=== PATIENT | male | born 1965 | race Caucasian/White ===

== ENCOUNTER 2022-11-24 14:42 | Outpatient (CLI) | payer OTHER, SELFPAY | END 2022-11-24 14:43 | disposition home or self-care (01) | PROVIDERS: PCP Family Medicine; Visit Provider Family Medicine | DX: Z00.00 Encounter for general adult medical examination without abnormal findings (principal); E11.9 Type 2 diabetes mellitus without complications; E66.01 Morbid (severe) obesity due to excess calories; I10 Essential (primary) hypertension; E78.5 Hyperlipidemia, unspecified; Z11.59 Encounter for screening for other viral diseases; Z79.899 Other long term (current) drug therapy | CPT/HCPCS: 80053; 80061; 82043; 82570; 82607; 84156; 84443; 86803 ==

== ENCOUNTER 2023-06-01 12:53 | Outpatient (CLI) | payer OTHER, SELFPAY ==
--- OUTSIDE RECORDS SUMMARY | 2023-06-01 12:55 | XMS_ITS | Clinical Summary ---
Author Name Unknown Organization [facility] Address [address] [place] [address] Care Team Providers Care Varnisher Apprentice Name Role Phone Citlaly Ley PA-C Unavailable [phone] Alee Tyson APRN TRUCK SUPERVISOR Unavaila ble Elroy Leigh Primary Care Provider [phone] Sloane Claros DO Unavailable [phone] Mary Siddiqui MD Unavailable [phone] Loly Carranza MD, [place] Unavailable [phone] Allergies Active Allergy Reactions Criticality Noted Date Comments Penicillins Rash Low 05/21/2016 Medications Medication Sig Dispensed Refills Start Date End Date Status FLUoxetine (PROZAC) 20 MG capsule Take 20 mg by mouth daily 0 Active aspirin 81 MG EC tablet Take 81 mg by mouth daily 0 Active carvedilol (COREG) 3.125 MG tabletIndications: ACS (acute coronary syndrome) (H) Take 1 tablet (3.125 mg) by mouth 2 times daily (with meals) 60 tablet 0 08/25/2018 Active lisinopril (PRINIVIL/ZESTRIL) 5 MG tabletIndications: ACS (acute coronary syndrome) (H) Take 1 tablet (5 mg) by mouth daily 30 tablet 0 08/25/2018 Active atorvastatin (LIPITOR) 80 MG tabletIndications: Hyperlipidemia LDL goal <100 Take 1 tablet (80 mg) by mouth daily 30 tablet 0 08/26/2018 Active ibuprofen (ADVIL/MOTRIN) 200 MG tablet Take 400-600 mg by mouth every 6 hours as needed for mild pain or pain 0 Active albuterol (PROAIR HFA/PROVENTIL HFA/VENTOLIN HFA) 108 (90 Base) MCG/ACT inhaler Inhale 2 puffs into the lungs every 4 hours as needed for shortness of breath / dyspnea or wheezing 0 Active Urea 40 % CREA Externally apply topically 2 times daily as needed (feet) 0 Active pravastatin (PRAVACHOL) 10 MG tablet Take 10 mg by mouth daily 0 Active polyethylene glycol (GOLYTELY) 236 g suspensionIndicati ons:Screen for colon cancer 2 days prior at 5pm, mix and drink half of a jug of Golytely. Drink an 8 oz. glass of Golytely every 15 minutes until half of the jug is gone. Place remainder of Golytely in the refrigerator. 1 day prior at 5 pm, drink the 2nd half of a jug of Golytely bowel prep. 6 hours before your check-in time, drink an 8 oz. glass of Golytely every 15 minutes until half of the 2nd jug of Golytely is gone. Discard remainder of second jug. 8000 mL 0 10/11/2022 Active bisacodyl (DULCOLAX) 5 MG EC tabletIndications: Screen for colon cancer 2 days prior to procedure, take 2 tablets at 4 pm. 1 day prior to procedure, take 2 tablets at 4 pm. For additional instructions refer to your colonoscopy prep instructions. 4 tablet 0 10/11/2022 Active omeprazole (PRILOSEC) [address] capsuleIndications :Esophageal obstruction due to food impaction Take 1 capsule (40 mg) by mouth 2 times daily 60 capsule 0 10/21/2022 Active Active Problems Problem Noted Date Diagnosed Date Morbid obesity 08/15/2022 Chest pain 08/24/2018 ACS (acute coronary syndrome) 08/23/2018 Immunizations Name Administration Dates Next Due Influenza Vaccine 18-64 (Flublok) 02/20/2019 Social History Tobacco Use Types Packs/Day Years Used Date Smoking Tobacco: Never Smokeless Tobacco: Never Tobacco Cessation:Counseling Given: Not Answered Alcohol Use Standard Drinks/Week Comments No 0 (1 standard drink = 0.6 oz pur e alcohol) PHQ-2 Answer Date Recorded PHQ-2 Score 0 08/15/2022 Adolescent Education Answer Date Record ed Getting School Help Needed Not on file 01/13 Sex and Gender Information Value Date Recorded Sex Assigned at Not on file Gender Identity Not on file Sexual Orientation Not on file Last Filed Vital Signs Vital Sign Reading Time Taken Comments Blood Pressure 120/79 09/22/2021 11:00 PM CDT Pulse 95 09/22/2021 11:00 PM CDT Temperature 36.7 ??C (98.1 ??F) 09/22/2021 11:00 PM C DT Respiratory Rate 16 09/22/2021 11:00 PM CDT Oxygen Saturation 96% 09/22/2021 11:00 PM CDT Inhaled Oxygen Concentration - - Weight 204.1 kg (450 lb) 08/15/2022 11:14 AM CDT Height 185.4 cm (6' 1) 02/19/2019 12:22 AM CDT Body Mass Index 59.37 02/19/2019 12:22 AM CDT Plan of Treatment Health Maintenance Due Date Last Done Comments ADVANCE CARE PLANNING 1967 ANNUAL REVIEW OF HM ORDERS 1967 CT COLONOGRAPHY 1967 FLEX SIG 1967 GLUCOSE 1967 HEPATITIS B IMMUNIZATION (1 of 3 - 3-dose series) 1967 YEARLY PREVENTIVE VISIT 1967 sDNA (Cologuard) 1967 COLONOSCOPY 09/05/1977 ZOSTER IMMUNIZATION (1 of 2) 09/05/2017 COLORECTAL CANCER SCREENING 09/25/2018 FIT 09/25/2018 09/25/2017 DTAP/TDAP/TD IMMUNIZATION (2 - Td or Tdap) 06/17/2019 06/17/2009 COVID-19 Vaccine ( season) 2022 05/18/2021, 09/08/2020, 08/18/2020 INFLUENZA VACCINE (#1) 2022 , 03/16/2020, 02/20/2019, Additional history exists PHQ-2 (once per calendar year) 2023 08/15/2022, 05/21/2016 LIPID 08/25/2023 08/24/2018, 07/23, 07/06/2016, Additional history exists Pneumococcal Vaccine: Pediatrics (0 to 5 Years) and At-Risk Patients (6 to 64 Years) Aged Out 08/11/2012 No longer eligible based on patient's age to complete this topic HEPATITIS C SCREENING Completed 03/20/2015 HIV SCREENING Completed 01/18/2017 HPV IMMUNIZATION Aged Out No longer e ligible based on patient's age to complete this topic IPV IMMUNIZATION Aged Out No longer e ligible based on patient's age to complete this topic MENINGITIS IMMUNIZATION Aged Out No l onger eligible based on patient's age to complete this topic RSV MONOCLONAL ANTIBODY Aged Out No l onger eligible based on patient's age to complete this topic Medical Devices Implanted Type Area Ic Designer Gate Arrays Device Identifier Shelf Expiration Date Model / Serial / Lot Knee Right: Knee Advance Directives For more information, please contact: [phone] Latest Code Status on File Code Status Date Activated Date Inactivated Comments Full Code 08/23/2018 4:30 PM 08/25/2018 4:44 PM Question Answer Comments Code status determined by: Discussion wi th patient/legal decision maker Care Teams Varnisher Apprentice Relationship Specialty Start Date End Date Elroy Leigh [address] [address] PCP - General Family Practice 08/23/18 Citlaly Ley PA-C [facility] PHYSICIAN [facility] [address] [place] [address] Referring Physician 12/16/16 Alee Tyson APRN TRUCK SUPERVISOR [address] [id number] [place] [address] Nurse Practitioner Nurse Practitioner 12/16/16 [place] [address] [place] [address] Gastroenterology 09/23/21 Mary Siddiqui MD [address] [address] Gastroenterology 09/23/21 Calixto Salcido MD [address] [place] [address] Assigned Gastroenterology Provider 08/20/22
--- OUTSIDE RECORDS SUMMARY | 2023-06-01 12:56 | XMS_ITS | Encounter Summary ---
Author Name Unknown Organization [facility] Address [address] [facility] [place] [address] Care Team Providers Care Programmer Or Analyst Name Role Phone Citlaly Ley PA-C Unavailable [phone] Alee Tyson APRN PHYSICIAN Unavaila ble Elroy Leigh Primary Care Provider [phone] Sloane Claros DO Unavailable [phone] Mary Siddiqui MD Unavailable [phone] Loly Carranza MD, [place] Unavailable [phone] Reason for Visit * Reason Onset Date Comments Appointment 09/23/2021 Encounter Details Date Type Department Care Team (Late st Contact Info) Description 09/23/2021 Telephone [facility] Gastroenterology Clinic [address] 4th [place] [address] Angela Mckenzie Appointment Social History Tobacco Use Types Packs/Day Years Used Date Smoking Tobacco: Never Smokeless Tobacco: Never Alcohol Use Standard Drinks/Week Comments No 0 (1 standard drink = 0.6 oz pur e alcohol) PHQ-2 Answer Date Recorded PHQ-2 Score 0 05/02/2018 Sex and Gender Information Value Date Recorded Sex Assigned at Not on file Gender Identity Not on file Sexual Orientation Not on file COVID-19 Exposure Response Date Recorded In the last 10 days, have yo u been in contact with someone who was confirmed or suspected to have Coronavirus/COVID-19? No / Unsure 09/22/2021 3:10 PM CDT documented as of this encounter Miscellaneous Notes * Telephone Encounter - Angela Mckenzie - 09/23/2021 11:29 AM CDT [facility] Call Center Phone Message May a detailed message be left on voicemail: yes Reason for Call: Appointment Intake Referring Provider Name: Mary Siddiqui MD Diagnosis and/or Symptoms: Esophageal obstruction due to food impaction [K22.2, T18.128A] Patient is being referred for an esophageal obstruction due to food impaction and is not experiencing weight loss. First available is 30+ days out. Please review per scheduling guidelines. Thanks! Action Taken: Message routed to: [facility] GI Travel Screening: Not Applicable documented in this encounter Plan of Treatment Not on file documented as of this encounter Visit Diagnoses Not on filedocumented in this encounter Care Teams Programmer Or Analyst Relationship Specialty Start Date End Date Elroy Leigh [address] [address] PCP - General Family Practice 08/23/18 Citlaly Ley PA-C [facility] PHYSICIAN [address] [place] [address] Referring Physician 12/16/16 Alee Tyson APRN PHYSICIAN [address] [facility] [id number] [place] [address] Nurse Practitioner Nurse Practitioner 12/16/16 [place] [address] [place] [address] Gastroenterology 09/23/21 Mary Siddiqui MD [facility] [id number] Gastroenterology 09/23/21 Calixto Salcido MD [address] [place] [address] [id number] Assigned Gastroenterology Provider 08/20/22 documented as of this encounter
--- OUTSIDE RECORDS SUMMARY | 2023-06-01 12:56 | XMS_ITS | Encounter Summary ---
Author Name Unknown Organization [facility] Address Count includes the [facility] [address] Care Team Providers Care Behavioral Sciences Department Chair Name Role Phone Citlaly Ley PA-C Unavailable [phone] Alee Tyson APRN LEAD SYSTEMS ARCHITECT Unavaila ble Elroy Leigh Primary Care Provider + [phone] Sloane Claros DO Unavailable [phone] Mary Siddiqui MD Unavailable [phone] Loly Carranza MD, [place] Unavailable [phone] Encounter Details Date Type Department Care Team (Latest Contact Info) Description 10/21/[address] [facility] Gastroenterology Clinic [address] 4th [place] [address] Alanis Barba RN Esophageal obstruction due to food impaction Social History Tobacco Use Types Packs/Day Years Used Date Smoking Tobacco: Never Smokeless Tobacco: Never Alcohol Use Standard Drinks/Week Comments No 0 (1 standard drink = 0.6 oz pur e alcohol) PHQ-2 Answer Date Recorded PHQ-2 Score 0 08/15/2022 Sex and Gender Information Value Date Recorded Sex Assigned at Not on file Gender Identity Not on file Sexual Orientation Not on file documented as of this encounter Plan of Treatment Not on file documented as of this encounter Visit Diagnoses Diagnosis Esophageal obstruction due to food impaction documented in this encounter Care Teams Behavioral Sciences Department Chair Relationship Specialty Start Date End Date Elroy Leigh [address] [address] PCP - General Family Practice 08/23/18 Citlaly Ley PA-C [facility] PHYSICIAN [facility] [address] [place] [address] Referring Physician 12/16/16 Alee Tyson APRN CNP [address] [id number] [place], [place] [address] Nurse Practitioner Nurse Practitioner 12/16/16 [place] [address] [place] [address] Gastroenterology 09/23/21 Mary Siddiqui MD [address] [address] Gastroenterology 09/23/21 Calixto Salcido MD [address] [place], [place] [address] Assigned Gastroenterology Provider 08/20/22 documented as of this encounter
--- OUTSIDE RECORDS SUMMARY | 2023-06-01 12:56 | XMS_ITS | Encounter Summary ---
Author Name Unknown Organization [facility] Address [facility] [place] [address] Care Team Providers Care Control And Recovery Combat Rescue Name Role Phone Citlaly Ley PA-C Unavailable [phone] Alee Tyson APRN FRETTED INSTRUMENT INSPECTOR Unavaila ble Elroy Leigh Primary Care Provider + [phone] Sloane Claros DO Unavailable [phone] Mary Siddiqui MD Unavailable [phone] Loly Carranza MD, [place] Unavailable [phone] Reason for Visit * Reason Onset Date Comments MTM 01/18/2019 Encounter Details Date Type Department Care Team (Late st Contact Info) Description 01/18/2019 Telephone [facility] Pharm D Project [address] [place] [address] Elroy Leigh [address] [address] [place] Social History Tobacco Use Types Packs/Day Years [...] on file documented as of this encounter Miscellaneous Notes * Telephone Encounter - Sarah Tran - 01/18/2019 1:42 PM CDT Left a message asking patient to give us a call back to reschedule missed MTM appointment. Sarah Tran, MTM coordinator procurement internship documented in this encounter Plan of Treatment Not on file documented as of this encounter Visit Diagnoses Not on filedocumented in this encounter Care Teams Control And Recovery Combat Rescue Relationship Specialty Start Date End Date Elroy Leigh [address] [address] PCP - General Family Practice 08/23/18 Citlaly Ley PA-C [facility] PHYSICIAN [address] [place] [address] Referring Physician 12/16/16 Alee Tyson APRN FRETTED INSTRUMENT INSPECTOR [address] [id number] [place], [place] [id number] Nurse Practitioner Nurse Practitioner 12/16/16 [place] [address] [place] [address] Gastroenterology 09/23/21 Mary Siddiqui MD [address] [address] Gastroenterology 09/23/21 Calixto Salcido MD [address] [place] [id number] Assigned Gastroenterology Provider 08/20/22 documented as of this encounter
--- OUTSIDE RECORDS SUMMARY | 2023-06-01 12:56 | XMS_ITS | Encounter Summary ---
Author Name Unknown Organization [facility] Address [address] [facility] [place] [address] Care Team Providers Care Housing Inspector Name Role Phone Citlaly Ley PA-C Unavailable [phone] Alee Tyson APRN BLASTING HELPER Unavaila ble Elroy Leigh Primary Care Provider + [phone] Sloane Claros DO Unavailable [phone] Mary Siddiqui MD Unavailable [phone] Loly Carranza MD, Madhav Unavailable [phone] Reason for Visit * Reason Onset Date Comments Refill Request 10/19/2022 omeprazole (PRIL OSEC) 40 MG Encounter Details Date Type Department Care Team (Late st Contact Info) Description 10/19/2022 Refill [facility] Gastroenterology Clinic [address] [place] [address] Calixto Salcido MD [address] [place] [id number] Refill Request (omeprazole (PRILOSEC) 40 MG ) Social History Tobacco Use Types Packs/Day Years [...] encounter Miscellaneous Notes * Telephone Encounter - Rajwinder Gomez RN - 10/21/2022 10:56 AM CDT omeprazole (PRILOSEC) 40 MG Last Written Prescription Date: 09/22/21 Last Fill Quantity: 90, # refills: 3 Last Office Visit : 08/15/22 Future Office visit: 02/14/23 Routing refill request to provider for review/approval because: Does GI want to continue RF med ? Patient not taking: Reported on 08/15/2022 * Telephone Encounter - Meme Mcgraw LPN - 10/19/2022 2:11 PM CDT Images from the original note were not included. documented in this encounter Plan of Treatment Not on file documented as of this encounter Visit Diagnoses Diagnosis Esophageal obstruction due to food impaction documented in this encounter Care Teams Housing Inspector Relationship Specialty Start Date End Date Elroy Leihg [address] [address] PCP - General Family Practice 08/23/18 Citlaly Ley PA-C [facility] PHYSICIAN [facility] [address] [place] [address] Referring Physician 12/16/16 Alee Tyson APRN CNP [address] [id number] [place] [address] Nurse Practitioner Nurse Practitioner 12/16/16 [place] [address] [place] [address] Gastroenterology 09/23/21 Mary Siddiqui MD [address] [address] Gastroenterology 09/23/21 Calixto Salcido MD [address] [place] [address] Assigned Gastroenterology Provider 08/20/22 documented as of this encounter
--- OUTSIDE RECORDS SUMMARY | 2023-06-01 12:56 | XMS_ITS | Encounter Summary ---
Author Name Unknown Organization [place] Address [facility] [place] [address] Care Team Providers Care Construction And Maintenance Inspector Name Role Phone Citlaly Ley PA-C Unavailable [phone] Alee Tyson APRN FREIGHT CHECKER Unavaila ble Elroy Leigh Primary Care Provider + [phone] Sloane Claros DO Unavailable [phone] Mary Siddiqui MD Unavailable [phone] Reason for Referral * Consultation (Routine: Next available opening) - Pending Review Specialty Diagnoses / Procedures Referred By Sylvia adam Referred To Contact Gastroenterology Diagnoses Gastroesophageal reflux disease with esophagitis without hemorrhage Screen for colon cancer Calixto Salcido MD [address] [place] [address] Referral ID Status Reason Start Date Expiration Date V isits Requested Visits Authorized [id number] Pending Review 08/15/2022 08/15/2023 1 1 Question Answer Service: Lower Endoscopy, Upper Endoscopy Upper Endoscopy Type: EGD Sedation Concerns: Hx of Poor Sedation Sedation Type: Deep/MAC Sedation Reason for Upper Endoscopy: dysphagia, GERD, CRC screening Lower Endoscopy Type: Colonoscopy Reason for Colonoscopy: Other Other Reason for Colonoscopy: screening Preferred Location: [facility] Scheduling Instructions: [facility] will call you to coordinate your care as prescribed by the provider. If you don? t hear from a inbound customer service representative within 2 business days, please call . Additional Information: with Dr. Salcido, not earlier than September 14 Comments Please be aware that coverage of these services is subject to the terms and limitations of your health insurance plan. Call member services at your health plan with any benefit or coverage questions. [facility] will call you to coordinate your care as prescribed by the provider. If you don? t hear from a inbound customer service representative within 2 business days, please call . Reason for Visit * Reason Comments Video Visit Esophageal Obstructi on Encounter Details Date Type Department Care Team (Latest Contact Info) Description 08/15/2022 11:20 AM CDT Virtual Visit [facility] [address] [place] [address] Calixto Salcido MD [address] [place] [id number] Gastroesophageal reflux disease with esophagitis without hemorrhage (Primary Dx); Morbid obesity (H); Screen for colon cancer Social History Tobacco Use Types Packs/Day Years [...] on file documented as of this encounter Last Filed Vital Signs Vital Sign Reading Time Taken Comments Blood Pressure - - Pulse - - Temperature - - Respiratory Rate - - Oxygen Saturation - - Inhaled Oxygen Concentration - - Weight 204.1 kg (450 lb) 08/15/2022 11:14 AM CDT Height - - Body Mass Index 59.37 02/19/2019 12:22 AM CDT documented in this encounter Patient Instructions * Patient Instructions* Calixto Salcido MD - 08/15/2022 11:20 AM CDT We will schedule for upper endoscopy and colonoscopy for further evaluation and management. We havesent omeprazole 40 mg twice a day to your preferred pharmacy. You should start taking omeprazole 40mg twice a day, 30 to 40 minutes prior to your lunch and dinner. Continue to monitor his symptoms and if any changes please let us know. documented in this encounter Progress Notes * Calixto Salcido MD - 08/15/2022 11:20 AM CDT Rene Meza is a 56 year old male who is being evaluated via a billable phone visit. Virtual Visit Details Type of service: Video Visit Video Start Time: 11:22 AM Video End Time:11;32 AM Originating Location (pt. Location): Home Distant Location (provider location): Off-site Platform used for Video Visit: [facility] Gastroenterology Visit for: Rene Meza 1965 August 15, 2022 Rene Meza is a 56 year old male who is being evaluated via a billable video (or phone) visit. The patient has been notified of following: This video (or phone) visit will be conducted via a call between you and your physician/provider. We have found that certain health care needs can be provided without the need for an in-person physical exam. This service lets us provide the care you need with a video conversation. If a prescription is necessary we can send it directly to your pharmacy. If lab work is needed we can place an orderfor that and you can then stop by our lab to have the test done at a later time. If during the course of the call the physician/provider feels a video/phone visit is not appropriate, you will not be charged for this service. Patient confirmed that they are in [place] for today's visit Reason for Visit: chief complaint GERD, dysphagia Referred by: No ref. provider found / Patient Care Team: Elroy Leigh as PCP - General (Family Practice) Citlaly Ley PA-C as Referring Physician Alee Tyson APRN CNP as Nurse Practitioner (Nurse Practitioner) Sloane Claros DO as (Gastroenterology) Mary Siddiqui MD as MD (Gastroenterology) History of Present Illness: Rene Meza is a 56 year old male. This is a very pleasant 56-year-old male with past medical history of obesity, GERD with esophagitis, food impaction, esophageal stricture, family history of Ashraf's esophagus with cancer in motherin her 60s who is referred for further evaluation and management of heartburn, reflux, difficulty swallowing and ongoing symptoms on a daily basis. Patient reports that a year ago he was started on omeprazole 40 mg twice a day which she was taking with significant resolution of all the GERD symptoms. He reported that his swallowing issues also improved. However he has been out of medication for amonth and he started having symptoms of heartburn, reflux, regurgitation and difficulty swallowing.He denies any chest pain. He denies any weight loss. He denies smoking. Patient denies any family history of colon cancer. He denies any prior screening colonoscopies. Wt Readings from Last 5 Encounters: 08/15/22 (!) 204.1 kg (450 lb) 09/22/21 (!) 226.8 kg (500 lb) 02/19/19 (!) 201.7 kg (444 lb 9.6 oz) 08/23/18 (!) 206.8 kg (456 lb) 09/11/17 (!) 222.3 kg (490 lb) Esophageal Questionnaire(s) BEDQ Questionnaire 08/15/2022 11:17 AM BEDQ Questionnaire: How Often Have You Had the Following? Trouble eating solid food (meat, bread, vegetables) 3 Trouble eating soft foods (yogurt, jello, pudding) 0 Trouble swallowing liquids 2 Pain while swallowing 0 Coughing or choking while swallowing foods or liquids 2 Total Score: 7 08/15/2022 11:17 AM BEDQ Questionnaire: Discomfort/Pain Ratings Eating solid food (meat, bread, vegetables) 2 Eating soft foods (yogurt, jello, pudding) 0 Drinking liquid 0 Total Score: 2 Eckardt Questionnaire 08/15/2022 11:18 AM Eckardt Questionnaire Dysphagia 1 Regurgitation 1 Retrosternal Pain 0 Weight Loss (kg) 0 Total Score: 2 Promis 10 Questionnaire 08/15/2022 11:20 AM PROMIS 10 FLOWSHEET DATA In general, would you say your health is: 1 In general, would you say your quality of life is: 2 In general, how would you rate your physical health? 1 In general, how would you rate your mental health, including your mood and your ability to think? 2 In general, how would you rate your satisfaction with your social activities and relationships? 3 In general, please rate how well you carry out your usual social activities and roles. (This includes activities at home, at work and in your community, and responsibilities as a parent, child, spouse, employee, friend, etc.) 3 To what extent are you able to carry out your everyday physical activities such as walking, climbing stairs, carrying groceries, or moving a chair? 2 In the past 7 days, how often have you been bothered by emotional problems such as feeling anxious,depressed, or irritable? 5 In the past 7 days, how would you rate your fatigue on average? 4 In the past 7 days, how would you rate your pain on average, where 0 means no pain, and 10 means worst imaginable pain? 8 Mental health question re-calculation - no clinical value 1 Physical health question re-calculation - no clinical value 2 Pain question re-calculation - no clinical value 2 Global Mental Health Score 8 Global Physical Health Score 7 PROMIS TOTAL - SUBSCORES 15 STUDIES & PROCEDURES: Lab Results Component Value Date EXAMENDO 09/22/[address] [address] [phone] Endoscopy Department Patient Name: Rene Meza Procedure Date: 09/22/2021 9:06 PM Date of : 1965 Admit Type: Outpatient Age: 56 Gender: Male Note Status: Finalized Attending MD: KYLER KURTZ , Total Sedation Time: Procedure: Upper GI endoscopy Indications: Foreign body in the esophagus Providers: Mary HAIR (fellow) Patient Profile: 56 year old male with a history of morbid obesity, HTN, HLD, and DMII who is presenting for a food impaction. Referring MD: Medicines: General Anesthesia Complications: No immediate complications. Estimated blood loss: None. Procedure: Pre-Anesthesia Assessment: - See the other procedure note for documentation of the pre-procedure assessment. - Prior to the procedure, a History and Physical was performed, and patient medications and allergies were reviewed. The patient is competent. The risks and benefits of the procedure and the sedation options and risks were discussed with the patient. All questions were answered and informed consent was obtained. Patient identification and proposed procedure were verified by the physician in the pre-procedure area. Mental Status Examination: alert and oriented. Airway Examination: normal oropharyngeal airway and neck mobility. Respiratory Examination: clear to auscultation. CV Examination: normal. ASA Grade Assessment: III - A patient with severe systemic disease. After reviewing the risks and benefits, the patient was deemed in satisfactory condition to undergo the procedure. The anesthesia plan was to use general anesthesia. Immediately prior to administration of medications, the patient was re-assessed for adequacy to receive sedatives. The heart rate, respiratory rate, oxygen saturations, blood pressure, adequacy of pulmonary ventilation, and response to care were monitored throughout the procedure. The physical status of the patient was re-assessed after the procedure. After obtaining informed consent, the endoscope was passed under direct vision. Throughout the procedure, the patient's blood pressure, pulse, and oxygen saturations were monitored continuously. The Endoscope was introduced through the mouth, and advanced to the second part of duodenum. The upper GI endoscopy was accomplished without difficulty. The patient tolerated the procedure well. Findings: Food was found at the gastroesophageal junction. Removal was accomplished with E suction device and spiral snare. Stricture at the GE junction Underneath where the food was previously in the lower third of the esophagus, LA Grade D (one or more mucosal breaks involving at least 75% of esophageal circumference) esophagitis with no bleeding as well as circumferential, dusky ulceration was found. The entire examined stomach was normal. The duodenum was normal. Impression: - Food at the gastroesophageal junction. Removal was successful. - LA Grade D esophagitis with no bleeding. - Normal stomach. - Normal duodenum. Recommendation: - Discharge patient to home. - Pureed diet. Avoid meat and avoid high residue food. - Use Prilosec (omeprazole) 40 mg PO BID for 2+ months. - Return to my office in 2 months. - Repeat upper endoscopy in 1 month to check healing and dilate stricture. Electronically signed by: Kyler Kurtz MD KYLER KURTZ, 09/22/2021 10:39:59 PM I was physically present for the entire viewing portion of the exam. Signature of teaching physician Rivas/Loyda KURTZ Number of Addenda: 0 Note Initiated On: 09/22/2021 9:06 PM Scope In: Scope Out: Prior medical records were reviewed including, but not limited to, notes from referring providers, lab work, radiographic tests, and other diagnostic tests. Pertinent results were summarized above. History Past Medical History: Diagnosis Date ??? Diabetes (H) ??? Hypertension Past Surgical History: Procedure Laterality Date ??? CV CORONARY ANGIOGRAM N/A 08/24/2018 Procedure: Coronary Angiogram; Surgeon: Akira Elliott MD; [facility] ??? CV LEFT HEART CATH N/A 08/24/2018 Procedure: Left Heart Cath; Surgeon: Akira Elliott MD; Location: [facility] ??? CV LEFT VENTRICULOGRAM N/A 08/24/2018 Procedure: Left Ventriculogram; Surgeon: Akira Elliott MD; Location: [facility] ??? ESOPHAGOSCOPY, GASTROSCOPY, DUODENOSCOPY (EGD), COMBINED N/A 09/02/2017 Procedure: ESOPHAGOGASTRODUODENOSCOPY (EGD) with foreign body removal; Surgeon: Paddy Pena MD;Location: [facility]; Service: ??? ESOPHAGOSCOPY, GASTROSCOPY, DUODENOSCOPY (EGD), COMBINED N/A 09/22/2021 Procedure: ESOPHAGOGASTRODUODENOSCOPY (EGD), Removal of Esophageal Impaction; Surgeon: Kyler Kurtz MD; Location: OR ??? JOINT REPLACEMENT Right TKA ??? ORTHOPEDIC SURGERY Social History Socioeconomic History ??? Marital status: Single Spouse name: Not on file ??? Number of children: Not on file ??? Years of education: Not on file ??? Highest education level: Not on file Occupational History ??? Not on file Tobacco Use ??? Smoking status: Never ??? Smokeless tobacco: Never Vaping Use ??? Vaping status: Not on file Substance and Sexual Activity ??? Alcohol use: No Alcohol/week: 0.0 standard drinks of alcohol ??? Drug use: No ??? Sexual activity: Not Currently Other Topics Concern ??? Not on file Social History Narrative ??? Not on file Social Determinants of Health Financial Resource Strain: Not on file Food Insecurity: Not on file Transportation Needs: Not on file Physical Activity: Not on file Stress: Not on file Social Connections: Not on file Intimate Partner Violence: Not on file Housing Stability: Not on file No family history on file. Family history reviewed and edited as appropriate Medications and Allergies: Outpatient Encounter Medications as of 08/15/2022 Medication Sig Dispense Refill ??? albuterol (PROAIR HFA/PROVENTIL HFA/VENTOLIN HFA) 108 (90 Base) MCG/ACT inhaler Inhale 2 puffs into the lungs every 4 hours as needed for shortness of breath / dyspnea or wheezing ??? aspirin 81 MG EC tablet Take 81 mg by mouth daily ??? FLUoxetine (PROZAC) 20 MG capsule Take 20 mg by mouth daily ??? ibuprofen (ADVIL/MOTRIN) 200 MG tablet Take 400-600 mg by mouth every 6 hours as needed for mild pain or pain ??? omeprazole (PRILOSEC) [address] capsule Take 1 capsule (40 mg) by mouth 2 times daily for 60 days 120 capsule 0 ??? Urea 40 % CREA Externally apply topically 2 times daily as needed (feet) ??? atorvastatin (LIPITOR) 80 MG tablet Take 1 tablet (80 mg) by mouth daily 30 tablet 0 ??? carvedilol (COREG) 3.125 MG tablet Take 1 tablet (3.125 mg) by mouth 2 times daily (with meals)60 tablet 0 ??? lisinopril (PRINIVIL/ZESTRIL) 5 MG tablet Take 1 tablet (5 mg) by mouth daily 30 tablet 0 ??? omeprazole (PRILOSEC) [address] capsule Take 1 capsule (40 mg) by mouth 2 times daily (Patient not taking: Reported on 08/15/2022) 90 capsule 3 ??? pravastatin (PRAVACHOL) 10 MG tablet Take 10 mg by mouth daily (Patient not taking: Reported on08/15/2022) No facility-administered encounter medications on file as of 08/15/2022. Allergies Allergen Reactions ??? Penicillins Rash Review of systems: A full 10 point review of systems was obtained and was negative except for the pertinent positives and negatives stated within the HPI. Objective Findings: Physical Exam: Video visit Constitutional: Wt (!) 204.1 kg (450 lb) BMI 59.37 kg/m?? General: Alert, cooperative, no distress, well-appearing Labs, Radiology, Pathology Lab Results Component Value Date WBC 8.4 09/22/2021 WBC 8.4 02/18/2019 WBC 7.1 08/23/2018 HGB 15.3 09/22/2021 HGB 15.1 02/18/2019 HGB 15.4 08/23/2018 PLT 241 09/22/2021 PLT 252 02/18/2019 PLT 230 08/23/2018 CHOL 131 08/24/2018 CHOL 145 08/09/2017 CHOL 170 07/06/2016 TRIG 93 08/24/2018 TRIG 153 (H) 08/09/2017 TRIG 135 07/06/2016 HDL 51 08/24/2018 HDL 47 08/09/2017 HDL 52 07/06/2016 ALT 65 09/22/2021 ALT 46 08/23/2018 AST 27 09/22/2021 AST 22 08/23/2018 NA 141 09/22/2021 NA 138 02/18/2019 NA 139 08/24/2018 BUN 18 09/22/2021 BUN 18 02/18/2019 BUN 18 08/24/2018 CO2 28 09/22/2021 CO2 29 02/18/2019 CO2 26 08/24/2018 INR 1.03 09/22/2021 Liver Function Studies - Recent Labs Lab Test 09/22/212014 PROTTOTAL 7.7 ALBUMIN 3.5 BILITOTAL 0.8 ALKPHOS 74 AST 27 ALT 65 Patient Active Problem List Diagnosis Date Noted ??? Morbid obesity (H) 08/15/2022 Priority: Medium ??? Chest pain 08/24/2018 Priority: Medium ??? ACS (acute coronary syndrome) (H) 08/23/2018 Priority: Medium Assessment and Plan Assessment: Rene Meza is 56 year old male. 1. Gastroesophageal reflux disease with esophagitis without hemorrhage 2. Morbid obesity (H) 3. Screen for colon cancer History of GERD with esophagitis, esophageal stricture last year in the setting of food impaction episode. Symptoms improved with omeprazole. Patient has not been taking omeprazole for past 4 weeks and continued to have symptoms. We discussed further evaluation and management. Plan: We discussed further evaluation with upper endoscopy for evaluation of esophageal stricture, esophagitis, Ashraf's esophagus. Patient voiced understanding. We also discussed colonoscopy for screening for colon cancer at the same time. We discussed alternatives including FIT testing and Cologuard. P atient preferred to complete colonoscopy over other options. Plan for upper endoscopy and colonoscopy with monitored anesthesia care. Prescription for omeprazole 40 mg twice a day sent with plan for 4 to 6 weeks of medication prior to endoscopy. Follow up plan: Return to clinic 6-12 Months or earlier based on testing results The risks and benefits of my recommendations, as well as other treatment options were discussed with the patient and any available family today. All questions were answered. o Follow up: As planned above. Today, I personally spent 10 minutes in direct phone visit time withthe patient, of which greater than 50% of the time was spent in patient education and counseling asdescribed above. Approximately 40 minutes were spent on indirect care associated with the patient'sconsultation including but not limited to review of: patient medical records to date, clinic visits, hospital records, lab results, imaging studies, procedural documentation, and coordinating care with other providers. The findings from this review are summarized in the above note. All of the aboveaccounted for a cumulative time of 50 minutes and was performed on the date of service. The patient verbalized understanding of the plan and was appreciative for the time spent and information provided during the virtual visit. Calixto Salcido MD, MPH Fixed Income Analystferry hand Division of Gastroenterology, Hepatology, and Nutrition [facility] Please note that the documentation was assisted by voice recognition software and documentation system. Manual proofreading was performed before finalization, however, voice recognition system related typos could have occurred and manually corrected when detected. documented in this encounter Nursing Notes * Noelle Michael - 08/15/2022 11:20 AM CDT Is the patient currently in the state of [place]? YES Visit mode:VIDEO If the visit is dropped, the patient can be reconnected by: VIDEO VISIT: Text to cell phone: [phone] Will anyone else be joining the visit? NO How would you like to obtain your AVS? MyChart Are changes needed to the allergy or medication list? NO Reason for visit: Video Visit (Esophageal Obstruction) documented in this encounter Plan of Treatment Scheduled Referrals Name Type Priority Associated Diagnoses Orde r Schedule Adult GI Pantograph Operator Referral - Procedure Only Referral Routine: Next available opening Gastroesophageal reflux disease with esophagitis without hemorrhage Screen for colon cancer Expected: 08/15/2022 (Approximate), Expires: 08/16/2023 documented as of this encounter Visit Diagnoses Diagnosis Gastroesophageal reflux disease with esophagitis without hemorrhage- Primary Morbid obesity (H) Morbid obesity Screen for colon cancer Special screening for malignant neoplasms, colon documented in this encounter Care Teams Construction And Maintenance Inspector Relationship Specialty Start Date End Date Elroy Leigh [address] [id number] PCP - General Family Practice 08/23/18 Citlaly Ley PA-C [facility] [address] [place] [address] Referring Physician 12/16/16 Alee Tyson APRN CNP [address] [place] [id number] [address] Nurse Practitioner Nurse Practitioner 12/16/16 [place] [address] [place] [address] Gastroenterology 09/23/21 Mary Siddiqui MD [address] [address] Gastroenterology 09/23/21 documented as of this encounter
--- OUTSIDE RECORDS SUMMARY | 2023-06-01 12:56 | XMS_ITS | Encounter Summary ---
Author Name Unknown Organization [place] Address [address] [facility] [place] [address] Care Team Providers Care Dozer Operator Name Role Phone Citlaly Ley PA-C Unavailable [phone] Alee Tyson APRN BASKET PATCHER Unavaila ble Elroy Leigh Primary Care Provider [phone] Sloane Claros DO Unavailable [phone] Mary Siddiqui MD Unavailable [phone] Loly Carranza MD, Calixto Unavailable [phone] Encounter Details Date Type Department Care Team (Late st Contact Info) Description 09/22/2021 [facility]ation [facility] [address] [place] [phone] Mary Siddiqui MD [address] [address] Social History Tobacco Use Types Packs/Day Years [...] PM CDT documented as of this encounter Plan of Treatment Not on file documented as of this encounter Visit Diagnoses Not on filedocumented in this encounter Care Teams Dozer Operator Relationship Specialty Start Date End Date Elroy Leigh [address] [address] PCP - General Family Practice 08/23/18 Citlaly Ley PA-C [facility] [address] [place], [place] [id number] Referring Physician 12/16/16 Alee Tyson APRN BASKET PATCHER [address] [place], [place] [id number], [place] [address] Nurse Practitioner Nurse Practitioner 12/16/16 [place] [address] [place] [address] Gastroenterology 09/23/21 Mary Siddiqui MD [address] [id number] Gastroenterology 09/23/21 Calixto Salcido MD [address] [place] [id number] Assigned Gastroenterology Provider 08/20/22 documented as of this encounter
--- OUTSIDE RECORDS SUMMARY | 2023-06-01 12:56 | XMS_ITS | Encounter Summary ---
Author Name Unknown Organization [place] Address [address] [facility] [place] [address] Care Team Providers Care Hogshead Filler Name Role Phone Citlaly Ley PA-C Unavailable [phone] Alee Tyson APRN MANAGER LEADERSHIP DEVELOPMENT Unavaila ble Elroy Leigh Primary Care Provider + [phone] Sloane Claros DO Unavailable [phone] Mary Siddiqui MD Unavailable [phone] Loly Carranza MD, Calixto Unavailable [phone] Encounter Details Date Type Department Care Team (Late st Contact Info) Description 02/06/2023 Telephone [facility] [address] 4th [place] [address] Gabby Ritter Social History Tobacco Use Types Packs/Day Years [...] encounter Miscellaneous Notes * Telephone Encounter - Gabby Ritter - 02/06/2023 11:41 AM CDT Called to remind patient of their upcoming appointment with our GI clinic, on February 14at 11:00am with Shazia Rodriguez . This appointment is scheduled as a video visit. You will receive a call approximately 30 minutes prior to check you in, you must be in [place] for this visit., if your appointment is virtual (video or telephone) you need to be in [place] for the visit. To reschedule or cancel patient to call [phone]. Gabby Ritter documented in this encounter Plan of Treatment Not on file documented as of this encounter Visit Diagnoses Not on filedocumented in this encounter Care Teams Hogshead Filler Relationship Specialty Start Date End Date Elroy Leigh [address] [address] PCP - General Family Practice 08/23/18 Citlaly Ley PA-C [facility] [address] [place] [address] Referring Physician 12/16/16 Alee Tyson APRN CNP 909 [facility] [place], [place] [address] Nurse Practitioner Nurse Practitioner 12/16/16 [place] [address] [place] [address] Gastroenterology 09/23/21 Mary Siddiqui MD [address] [address] Gastroenterology 09/23/21 Calixto Salcido MD [address] [place] [address] Assigned Gastroenterology Provider 08/20/22 documented as of this encounter
--- OUTSIDE RECORDS SUMMARY | 2023-06-01 12:56 | XMS_ITS | Encounter Summary ---
Author Name Unknown Organization [place] Address [address] [facility] [place] [address] Care Team Providers Care Film Process Operator Name Role Phone Citlaly Ley PA-C Unavailable [phone] Alee Tyson APRN AIRPLANE PATROL PILOT Unavaila ble Elroy Leigh Primary Care Provider + [phone] Sloane Claros DO Unavailable [phone] Mary Siddiqui MD Unavailable [phone] Loly Carranza MD, Calixto Unavailable [phone] Reason for Visit * Reason Onset Date Comments Appointment 11/23/2021 Reschedule 2 appt with Jacinta Siddiqui, per Clinic Encounter Details Date Type Department Care Team (Late st Contact Info) Description 11/23/2021 Telephone [facility] Gastroenterology Clinic [address] 4th [place] [address] Mary Siddiqui MD [address] [address] Appointment (Reschedule 11/24/21 appt with Jacinta Siddiqui, per Clinic) Social History Tobacco Use Types Packs/Day Years [...] encounter Miscellaneous Notes * Telephone Encounter - Charmaine Sanchez - 11/23/2021 2:27 PM CDT [facility] Phone Message May a detailed message be left on voicemail: yes Reason for Call: Other: Patient returned call to reschedule the cancelled 12/14/21 appt with Jacinta Siddiqui. However, investigative writer did not find any video appts for Jacinta Siddiqui available. Please follow up with patient. Action Taken: Message routed to: [facility] Travel Screening: Not Applicable documented in this encounter Plan of Treatment Not on file documented as of this encounter Visit Diagnoses Not on filedocumented in this encounter Care Teams Film Process Operator Relationship Specialty Start Date End Date Elroy Leigh [address] [id number] PCP - General Family Practice 08/23/18 Citlaly Ley PA-C [facility]IAN [facility] [address] [place] [address] Referring Physician 12/16/16 Alee Tyson APRN CNP 909 [facility] [place] [address] Nurse Practitioner Nurse Practitioner 12/16/16 [place] [address] [place] [address] Gastroenterology 09/23/21 Mary Siddiqui MD [address] [address] Gastroenterology 09/23/21 Calixto Salcido MD [address] [place] [address] Assigned Gastroenterology Provider 08/20/22 documented as of this encounter
--- OUTSIDE RECORDS SUMMARY | 2023-06-01 12:56 | XMS_ITS | Encounter Summary ---
Author Name Unknown Organization [place] Address [address] [facility] [place] [address] Care Team Providers Care Legal Archivist Name Role Phone Citlaly Ley PA-C Unavailable [phone] Alee Tyson APRN GRINDING AND POLISHING LABORER Unavaila ble Elroy Leigh Primary Care Provider + [phone] Sloane Claros DO Unavailable [phone] Mary Siddiqui MD Unavailable [phone] Reason for Visit * Reason Onset Date Comments Previsit 07/27/2022 Encounter Details Date Type Department Care Team (Late st Contact Info) Description 07/27/2022 PRE VISIT [facility] Gastro[facility]ology Clinic [address] 4th [place] [address] Magui Fermin MD 420 [facility] 36 [place], [place] [address] Previsit Social History Tobacco Use Types Packs/Day Years [...] encounter Miscellaneous Notes * Telephone Encounter - Mable Harman - 06/22/2022 8:56 AM CST REFERRAL INFORMATION: ?? Referring Provider: Dr. Mary Siddiqui ?? Referring Clinic: [facility] ?? Reason for Visit/Diagnosis: Esophageal Obstruction FUTURE VISIT INFORMATION: ?? Appointment Date: 07-27-22 ?? Appointment Time: @ 4pm NOTES STATUS DETAILS OFFICE NOTE from Referring Provider Internal Dr. Mary Siddiqui 09-22-21 OFFICE NOTE from Other Specialist N/A HOSPITAL DISCHARGE SUMMARY/ ED VISITS Care Everywhere Denys Grey PA-C 09-02-17 OPERATIVE REPORT N/A MEDICATION LIST Internal ENDOSCOPY Care Everywhere EGD 09-22-21, 09-02-17 COLONOSCOPY N/A ERCP N/A EUS N/A STOOL TESTING N/A PERTINENT LABS Care Everywhere C-diff 09-22-21, 02-18-19, 09-25-17 PATHOLOGY REPORTS (RELATED) N/A IMAGING (CT, MRI, EGD, MRCP, Small Bowel Follow Through/SBT, MR/CT Enterography) Care Everywhere XRChest 09-22-21, 02-18-19, 09-02-17, 06-01-17, 03-05-17 *additional in chart* ENT MINISTRY PASTOR documented in this encounter Plan of Treatment Not on file documented as of this encounter Visit Diagnoses Not on filedocumented in this encounter Care Teams Legal Archivist Relationship Specialty Start Date End Date Elroy Leigh [address] [id number] PCP - General Family Practice 08/23/18 Citlaly Ley PA-C [facility] PHYSICIAN [facility] [address] [place], [place] [address] Referring Physician 12/16/16 Alee Tyson APRN GRINDING AND POLISHING LABORER [address] [place] [address], [place] [address] Nurse Practitioner Nurse Practitioner 12/16/16 [place] [address] [place] [address] Gastroenterology 09/23/21 Mary Siddiqui MD [address] [address] Gastroenterology 09/23/21 documented as of this encounter
--- OUTSIDE RECORDS SUMMARY | 2023-06-01 12:56 | XMS_ITS | Encounter Summary ---
Author Name Unknown Organization [place] Address [address] [facility] [place] [address] Care Team Providers Care Debone Processing Supervisor Name Role Phone Citlaly Ley PA-C Unavailable [phone] Alee Tyson APRN CARDIOLOGY CLINICAL NURSE SPECIALIST Unavaila ble Elroy Leigh Primary Care Provider + [phone] Sloane Claros DO Unavailable [phone] Mary Siddiqui MD Unavailable [phone] Loly Carranza MD, Calixto Unavailable [phone] Reason for Visit * Reason Onset Date Comments Pt. Information/instruction 10/11/2022 [place]ila noscopy / EGD Encounter Details Date Type Department Care Team ([facility] Contact Info) Description 10/11/2022 Telephone [facility] Endoscopy [address] [place] [phone] Kari Gomez RN Pt. Information/instructio n (Colonoscopy / EGD) Social History Tobacco Use Types Packs/Day Years [...] encounter Miscellaneous Notes * Telephone Encounter - EisBessie shi RN - 10/20/2022 10:11 AM CDT Patient has not scheduled PAC appointment yet. Attempted to contact patient to remind him to schedule PAC appointment. No answer. Left message to call back option #4 Bessie Thompson RN Endoscopy Procedure Pre tile conduit layer * Telephone Encounter - Akua Ross RN - 10/17/2022 10:53 AM CDT The Pt decided he would like to keep the procedure. He is diabetic, however denies having low bloodsugars in general. He will discuss with his doctor and call back to reschedule if it is recommendedhe do so. Pre assessment completed for upcoming procedure. Procedure details: Patient scheduled for Colonoscopy/Upper endoscopy (EGD) on 10/27/22. Arrival time: 1230. Procedure time 1400 Pre op exam needed? Yes. Patient is aware they need a PAC eval prior to procedure. [facility] The Pt will call today to schedule Pre-Op exam. Facility location: [facility]; [address] [place] [address], 3rd Floor, [place] [address] Sedation type: MAC COVID policy reviewed. Designated trencher driver policy reviewed. Instructed to have someone stay 24 hours post procedure. Chart review: Electronic implanted devices? No Diabetic? Yes- see medication holding recommendations Diabetic medication HOLDING recommendations: (if applicable) Oral diabetic medications: Yes - Metformin (glucophage). Patient to hold oral diabetic medications day of procedure. Diabetic injectables: No Insulin: No Medication review: Anticoagulants? No NSAIDS? Yes. Ibuprofen (Advil, Motrin). Holding interval of 1 day before procedure. Other medication HOLDING recommendations: N/A Prep for procedure: Bowel prep recommendation: Extended prep Golytely Prep instructions sent via letter Reviewed procedure prep instructions. Patient verbalized understanding and had no questions or concerns at this time. Akua Ross RN Endoscopy Procedure Pre tile conduit layer [phone] option 4 * Telephone Encounter - Linda Dudley RN - 10/17/2022 10:21 AM CDT 2nd attempt for pre assessment. Patient answered the phone, states wants earlier (in the day) appointment. Transferred to scheduling per patient request. Linda Dudley RN * Telephone Encounter - Kari Gomez RN - 10/11/2022 3:56 PM CDT Attempted to contact patient regarding upcoming Colonoscopy/Upper endoscopy (EGD) procedure on 10/27/22 for pre assessment questions. No answer. Left message to return call to [phone] #4 Discuss Covid policy and designated trencher driver policy. Pre op exam? Pt will need to Complete PAC Eval - Please have him call [phone] to set up. D/t BMI 54 and MAC Sedation Arrival time: 1230. Procedure time: 1400 Facility location: [facility]; [address] [place] [address], 3rd Floor, [place] [address] Sedation type: MAC NSAIDs? Yes. Ibuprofen (Advil, Motrin). Holding interval of 1 day before procedure. and ASA- no hold time Anticoagulants: No Electronic implanted devices? No Diabetic? Yes - not on diabetic medication Indication for procedure: dysphagia, GERD, CRC screening Bowel prep recommendation: Extended prep Golytely d/t BMI Prep instructions sent via letter. Bowel prep script sent to [facility] [place], [place] - [address] Gomez RN Endoscopy Procedure Pre tile conduit layer documented in this encounter Plan of Treatment Not on file documented as of this encounter Visit Diagnoses Diagnosis Screen for colon cancer- Primary Special screening for malignant neoplasms, colon documented in this encounter Care Teams Debone Processing Supervisor Relationship Specialty Start Date End Date Elroy Leigh [address] [phone] PCP - General Family Practice 08/23/18 Citlaly Ley PA-C [facility] PHYSICIAN [facility] [address] [place] [address] Referring Physician 12/16/16 Alee Tyson APRN CARDIOLOGY CLINICAL NURSE SPECIALIST 909 [facility], [place] [address] Nurse Practitioner Nurse Practitioner 12/16/16 [place] [address] [place], [place] [address] Gastroenterology 09/23/21 Mary Siddiqui MD [address] [address] Gastroenterology 09/23/21 Calixto Salcido MD [address] [place] [address] Assigned Gastroenterology Provider 08/20/22 documented as of this encounter
--- OUTSIDE RECORDS SUMMARY | 2023-06-01 12:56 | XMS_ITS | Encounter Summary ---
Author Name Unknown Organization [place] Address [address] [facility] [address] Care Team Providers Care Forestry Biology Specialist Name Role Phone Citlaly Ley PA-C Unavailable [phone] Alee Tyson APRN WAVE SOLDERING MACHINE OPERATOR Unavaila ble Elroy Leigh Primary Care Provider + [phone] Sloane Claros DO Unavailable [phone] Mary Siddiqui MD Unavailable [phone] Reason for Visit * Reason Onset Date Comments Previsit 08/15/2022 Encounter Details Date Type Department Care Team (Late st Contact Info) Description 08/15/2022 PRE VISIT [facility] Gastroenterology Clinic [address] [place] [address] Calixto Salcido MD [address] [place] [id number] Previsit Social History Tobacco Use Types Packs/Day [...] * Telephone Encounter - Mable Harman - 07/22/2022 2:43 PM CDT REFERRAL INFORMATION: ?? Referring Provider: Dr. Mary Siddiqui ?? Referring Clinic: [facility] ?? Reason for Visit/Diagnosis: Esophageal obstruction FUTURE VISIT INFORMATION: ?? Appointment Date: 08-15-22 ?? Appointment Time: @ 11:20am NOTES STATUS DETAILS OFFICE NOTE from Referring Provider Internal 09-22-21 Dr. Mary Siddiqui OFFICE NOTE from Other Specialist N/A HOSPITAL DISCHARGE SUMMARY/ ED VISITS Internal/Care everywhere 09-22-21 Dr. Rene Mckeon 08-17-18 Dr. Lewis Guerrero 09-02-17 Dr. Paddy Pena OPERATIVE REPORT N/A MEDICATION LIST Internal ENDOSCOPY Internal EGD: 09-22-21 COLONOSCOPY N/A ERCP N/A EUS N/A STOOL TESTING Care everywhere 09-25-17 PERTINENT LABS Internal C-diff: 09-22-21, 02-18-19 PATHOLOGY REPORTS (RELATED) N/A IMAGING (CT, MRI, EGD, MRCP, Small Bowel Follow Through/SBT, MR/CT Enterography) Internal/Care everywhere EGD: 09-22-21 XR chest: 09-22-21, 02-08-19, 09-20-18, 08-23-18, 06-01-17 documented in this encounter Plan of Treatment Not on file documented as of this encounter Visit Diagnoses Not on filedocumented in this encounter Care Teams Forestry Biology Specialist Relationship Specialty Start Date End Date Elroy Leigh [address] [phone] PCP - General Family Practice 08/23/18 Citlaly Ley PA-C [facility] PHYSICIAN [facility] [address] [place], [place] [address] Referring Physician 12/16/16 Alee Tyson APRN CNP 8[address] [facility] [place] [address] Nurse Practitioner Nurse Practitioner 12/16/16 [place] [address] [place] [address] Gastroenterology 09/23/21 Mary Siddiqui MD [address] [address] Gastroenterology 09/23/21 documented as of this encounter
--- OUTSIDE RECORDS SUMMARY | 2023-06-01 12:56 | XMS_ITS | Encounter Summary ---
Author Name Unknown Organization [place] Address [facility] [place] [address] Care Team Providers Care Sponsorship Manager Name Role Phone Citlaly Ley PA-C Unavailable [phone] Alee Tyson APRN PAYROLL SPECIALIST Unavaila ble Elroy Leigh Primary Care Provider + [phone] Sloane Claros DO Unavailable [phone] Mary Siddiqui MD Unavailable [phone] Reason for Visit * Reason Onset Date Comments Appointment 08/11/2022 CONFIRMED: 08/15 at 11:20am Encounter Details Date Type Department Care Team (Late st Contact Info) Description 08/11/2022 [facility] Gastroenterology Clinic [address] 4th [place] [address] Gabby Ritter Appointment (CONFIRMED: 08/15 at 11:20am) Social History Tobacco Use Types Packs/Day Years [...] * Telephone Encounter - Gabby Ritter - 08/11/2022 10:14 AM CDTSummary: Appointment Reminder Called to remind patient of their upcoming appointment with our GI clinic, on August 15 at11:20pm with Dr. Calixto Salcido. This appointment is scheduled as a video visit. You will receive acall approximately 30 minutes prior to check you in, you must be in [place] for this visit., if your appointment is virtual (video or telephone) you need to be in [place] for the visit. To reschedule orcancel patient to call [phone] Ritter documented in this encounter Plan of Treatment Not on file documented as of this encounter Visit Diagnoses Not on filedocumented in this encounter Care Teams Sponsorship Manager Relationship Specialty Start Date End Date Elroy Leigh [address] [address] PCP - General Family Practice 08/23/18 Citlaly Ley PA-C [facility] PHYSICIAN [facility] [address] [place] [address] Referring Physician 12/16/16 Alee Tyson APRN CNP 909 [facility] [place], [place] [address] Nurse Practitioner Nurse Practitioner 12/16/16 [place] [address] [place] [address] Gastroenterology 09/23/21 Mary Siddiqui MD [address] [address] Gastroenterology 09/23/21 documented as of this encounter
--- OUTSIDE RECORDS SUMMARY | 2023-06-01 12:56 | XMS_ITS | Referral Summary ---
Author Name Unknown Organization [place] Address [address] [place] [address] Care Team Providers Care Chief Knowledge Officer Name Role Phone Citlaly Ley PA-C Unavailable [phone] Alee Tyson APRN BLOCK BREAKER OPERATOR Unavaila ble Elory Leigh Primary Care Provider [phone] Sloane Claros DO Unavailable [phone] Mary Siddiqui MD Unavailable [phone] Loly Carranza MD, Calixto Unavailable [phone] Allergies Active Allergy Reactions Criticality Noted [...] 02/19/2019 12:22 AM CDT Plan of Treatment Not on file Medical Devices Implanted Type Area Professional Wrestler Device Identifier Shelf Expiration Date Model / Serial / Lot Knee Right: Knee Advance Directives For more information, please contact: [phone] Latest Code Status on File Code Status Date Activated Date Inactivated Comments Full Code 08/23/2018 4:30 PM 08/25/2018 4:44 PM Question Answer Comments Code status determined by: Discussion wi th patient/legal decision maker Care Teams Chief Knowledge Officer Relationship Specialty Start Date End Date Elroy Leigh [address] [address] PCP - General Family Practice 08/23/18 Citlaly Ley, [facility] PHYSICIAN [facility] [address] [place] [address] Referring Physician 12/16/16 Alee Tyson APRN BLOCK BREAKER OPERATOR 909 [facility] [place], [place] [address] Nurse Practitioner Nurse Practitioner 12/16/16 [place] [address] [place] [address] Gastroenterology 09/23/21 Mary Siddiqui MD [address] [address] Gastroenterology 09/23/21 Calixto Salcido MD [address] [place] [id number] Assigned Gastroenterology Provider 08/20/22
--- OUTSIDE RECORDS SUMMARY | 2023-06-01 12:56 | XMS_ITS | Encounter Summary ---
Author Name Unknown Organization [place] Address [facility] [place] [address] Care Team Providers Care Gm/Svp Global Publisher Business Name Role Phone Citlaly Ley PA-C Unavailable [phone] Alee Tyson APRN SALESPERSON TERRAZZO TILES Unavaila ble Soni Hernandez RN Unavailable [phone] Elroy Leigh Primary Care Provider + [phone] Darcie Murrieta [facility] Unavailable [phone] Sloane Claros DO Unavailable [phone] Mary Siddiqui MD Unavailable [phone] Loly Carranza MD, Calixto Unavailable [phone] Reason for Visit * Reason Onset Date Comments Diabetes Education 08/23/2018 Encounter Details Date Type Department Care Team (Late st Contact Info) Description 08/23/2018 Telephone [facility] [address] [place] [address] Tiera Leong, PAUL SALESPERSON TERRAZZO TILES [address] [place] [address] Diabetes Education Social History Tobacco Use Types Packs/Day Years [...] encounter Miscellaneous Notes * Telephone Encounter - Stephanie Marinelli - 08/23/2018 4:51 PM CDT Diabetes Education Scheduling Outreach #1: Call to patient to schedule. Patient declined to schedule and asked to be called back on Sunday 08/27. Stephanie Marinelli [facility] Scheduling documented in this encounter Plan of Treatment Not on file documented as of this encounter Visit Diagnoses Not on filedocumented in this encounter Care Teams Gm/Svp Global Publisher Business Relationship Specialty Start Date End Date Elroy Leigh [address] [id number] PCP - General Family Practice 08/23/18 Citlaly Ley PA-C [facility] PHYSICIAN [facility] [address] [place], [place] [address] Referring Physician 12/16/16 Alee Tyson APRN CNP 909 [facility] [place] [address] Nurse Practitioner Nurse Practitioner 12/16/16 Soni Hernandez, REKHA Nurse Coordinator Neurology 01/12/17 10/10/18 Darcie Murrieta, [facility] [address] [facility] 812 [place], [place] [address] Pharmacist Pharmacist 12/18/18 12/30/18 [place] [address] [place] [address] Gastroenterology 09/23/21 Mary Siddiqui MD [address] [address] Gastroenterology 09/23/21 Calixto Salcido MD [address] [place] [address] Assigned Gastroenterology Provider 08/20/22 documented as of this encounter
--- OUTSIDE RECORDS SUMMARY | 2023-06-01 12:56 | XMS_ITS | Encounter Summary ---
Author Name Unknown Organization [place] Address [address] [facility] [place] [address] Care Team Providers Care Inventory Control Specialist Name Role Phone Citlaly Ley PA-C Unavailable [phone] Alee Tyson APRN BASS STRING WINDER Unavaila ble Elroy Leigh Primary Care Provider + [phone] Sloane Claros DO Unavailable [phone] Mary Siddiqui MD Unavailable [phone] Loly Carranza MD, Calixto Unavailable [phone] Reason for Visit * Reason Onset Date Comments Appointment 02/20/2023 GI follow up ord er Encounter Details Date Type Department Care Team ([facility] st Contact Info) Description 02/20/2023 Telephone [facility] Gastroenterology Clinic [address] [place] [address] Shazia Rodriguez PA-C [address] [place] [id number] Appointment (GI follow up order) Social History Tobacco Use Types Packs/Day Years [...] encounter Miscellaneous Notes * Telephone Encounter - JoeGilma - 02/20/2023 12:05 PM CDT Unable to LVM or send MyC, Letter will be sent regarding the followin mo esophageal follow-up with Shazia Rodriguez PA-C documented in this encounter Plan of Treatment Not on file documented as of this encounter Visit Diagnoses Not on filedocumented in this encounter Care Teams Inventory Control Specialist Relationship Specialty Start Date End Date Elroy Leigh [address] [address] PCP - General Family Practice 08/23/18 Citlaly Ley PA-C [facility] PHYSICIAN [facility] [address] [place] [address] Referring Physician 12/16/16 Alee Tyson APRN CNP 909 [facility] [place] [address] Nurse Practitioner Nurse Practitioner 12/16/16 [place] [address] [place] [address] Gastroenterology 09/23/21 Mary Siddiqui MD [address] [address] Gastroenterology 09/23/21 Calixto Salcido MD [address] [place] [address], [place] [address] Assigned Gastroenterology Provider 08/20/22 documented as of this encounter
--- OUTSIDE RECORDS SUMMARY | 2023-06-01 12:56 | XMS_ITS | Encounter Summary ---
Author Name Unknown Organization [facility] Address [address] [facility] [place] [address] Care Team Providers Care Electrician Station Assistant Name Role Phone Citlaly Ley PA-C Unavailable [phone] Alee Tyson APRN MACHINE WELT BUTTER Unavaila ble Elroy Leigh Primary Care Provider + [phone] Sloane Claros DO Unavailable [phone] Mary Siddiqui MD Unavailable [phone] Reason for Visit * Reason Onset Date Comments Appointment 06/21/2022 Rescheduling wilfred gardner Encounter Details Date Type Department Care Team (Late st Contact Info) Description 06/21/2022 Telephone [facility] [address] [place] [address] Calixto Salcido MD [address] [place] [id number] Appointment (Rescheduling needed) Social History Tobacco Use Types Packs/Day Years [...] encounter Miscellaneous Notes * Telephone Encounter - Les Red - 07/19/2022 10:38 AM CDT Pt is now rescheduled to see Dr. Salcido on 08/15/2022 at 11:20am for a video visit. * Telephone Encounter - Thaddeus Black - 06/23/2022 10:35 AM CST LVMx2, no mychart. Sent letter informing pt that the appt will be cancelled. Left K pod # to call and reschedule RAGE INSPECTION MACHINE TENDER * Telephone Encounter - Thaddeus Black - 06/21/2022 10:55 AM CST LVM, no mychart Appt on 07/27/[address] Fermin needs rescheduling due to the provider being unavailable. Reschedule with Dr. Salcido using New Esophageal Next Available visit type. Ok per Alanis DA SILVA to use any new or return slot RAGE INSPECTION MACHINE TENDER documented in this encounter Plan of Treatment Not on file documented as of this encounter Visit Diagnoses Not on filedocumented in this encounter Care Teams Electrician Station Assistant Relationship Specialty Start Date End Date Elroy Leigh [address] [address] PCP - General Family Practice 08/23/18 Citlaly Ley PA-C [facility] PHYSICIAN [facility] [address] [place], [place] [id number] Referring Physician 12/16/16 Alee Tyson APRN CNP [address] [place] [id number] [address] Nurse Practitioner Nurse Practitioner 12/16/16 [place] [address] [place] [address] Gastroenterology 09/23/21 Mary Siddiqui MD [address] [address] Gastroenterology 09/23/21 documented as of this encounter
--- OUTSIDE RECORDS SUMMARY | 2023-06-01 12:56 | XMS_ITS | Encounter Summary ---
Author Name Unknown Organization [facility] Address [address] [facility] [place] [address] Care Team Providers Care Ham Marker Name Role Phone Citlaly Ley PA-C Unavailable [phone] Alee Tyson APRN PATIENT RELATIONS COORDINATOR Unavaila ble Elroy Leigh Primary Care Provider + [phone] Sloane Claros DO Unavailable [phone] Mary Siddiqui MD Unavailable [phone] Loly Carranza MD, Calixto Unavailable [phone] Reason for Visit * Reason Onset Date Comments Procedure 09/05/2022 Colonoscopy/EGD scheduling Encounter Details Date Type Department Care Team ([facility] st Contact Info) Description 09/05/2022 Telephone [facility]astro[facility] [address] [place] [address] None Procedure (Colonoscopy/EGD scheduling) Social History Tobacco Use Types Packs/Day Years [...] encounter Miscellaneous Notes * Telephone Encounter - Balaji Neil - 10/03/2022 12:09 PM CDT LVM for Rene and advised of openings with Salcido at [facility] on either 10/20 or 10/27 and to call to get scheduled. [facility] [place] * Telephone Encounter - Balaji Neil - 09/05/2022 1:33 PM CDT Screening Questions BLUE KIND OF PREP RED LOCATION [review exclusion criteria] GREEN SEDATION TYPE y Are you active on mychart? Salcido Ordering/Referring Provider? HP What type of coverage do you have? n Have you had a positive covid test in the last 14 days? 55.4 1. BMI [BMI 40+ - review exclusion criteria& smart-phrase document] y 2. Are you able to give consent for your medical care? [IF NO,MEDICAL CERTIFICATION SPECIALIST] n 3. Are you taking any prescription pain medications on a routine schedule (ex narcotics: oxycodone, roxicodone, oxycontin, and percocet)? [animal scientist] n 3a. EXTENDED PREP What kind of prescription? n 4. Do you have any chemical dependencies such as alcohol, street drugs, or methadone? If yes 3- 5 , please schedule with MAC sedation. IF YES TO ANY 6 - 10 - HOSPITAL SETTING ONLY. y 6. Do you need assistance transferring? n 7. Have you had a heart or lung transplant? n 8. Are you currently on dialysis? n 9. Do you use daily home oxygen? n 10. Do you take nitroglycerin? 10a. n If yes, how often? 11. Are you currently ? 11a. If yes, how many weeks? [ Greater than 12 weeks, OR NEEDED] n 12. Do you have Pulmonary Hypertension? *NEED PAC APPT AT [facility] w/ MAC* n 13. [review exclusion criteria] Do you have any implantable devices in your body (pacemaker, defib, LVAD)? n 14. In the past 6 months, have you had any heart related issues including cardiomyopathy or heartattack? 14a. n If yes, did it require cardiac stenting if so when? n 15. Have you had a stroke or Transient ischemic attack (TIA - aka ???mini stroke?? ) within 6 months? y 16. Do you have mod to severe Obstructive Sleep Apnea? [Hospital only] n 17. Do you have SEVERE AND UNCONTROLLED asthma? *NEED PAC APPT AT [facility] w/MAC* 18.Do you take blood thinners? No n 19. Do you take the medication named Phentermine? 19a. If yes, Hold for 7 days before procedure. Please consult your prescribing provider if you have questions about holding this medication. n 20. Do you have chronic kidney disease? y 21. Do you have a diagnosis of diabetes? n 22. On a regular basis do you go 3-5 days between bowel movements? 23. Preferred LOCAL Pharmacy for Pre Prescription [facility] - [place], [place] - [address] - CLOSING REMINDERS - ??? You will receive a call from a Nurse to review instructions and health history. This assessmentmust be completed prior to your procedure. Failure to complete the Nurse assessment may result in the procedure being cancelled. ??? On the day of your procedure, please designatean adult(s) who can drive you home stay with you for the next 24 hours. The medicines used in the exam will make you sleepy. You will not be able to drive. ??? You cannot take public transportation, ride share services, or non-medical taxi service withouta responsible caregiver. Medical transport services are allowed with the requirement that a responsible caregiver will receive you at your destination. We require that drivers and caregivers are confirmed prior to your procedure. - SCHEDULING DETAILS - y & AMANDA/mobility/BMI Hospital Setting Required & If yes, what is the exclusion? Loly Surgeon 10/27/22Date of Procedure Upper and Lower Endoscopy [EGD and Colonoscopy] Type of Procedure Scheduled [facility] Location [facility] EXTENDED - If you answer yes to questions #1, #3, #22 (De Groen and CF pts)Which Colonoscopy Prep was Sent? MAC Sedation Type y PAC / Pre-op Required Needs to be scheduled once [facility] time available with Salcido/ROLF Case in [place] documented in this encounter Plan of Treatment Not on file documented as of this encounter Visit Diagnoses Not on filedocumented in this encounter Care Teams Ham Marker Relationship Specialty Start Date End Date UlElroy conway [address] [id number] PCP - General Family Practice 08/23/18 Citlaly Ley PA-C [facility] PHYSICIAN [facility] [address] [place] [address] Referring Physician 12/16/16 Alee Tyson APRN PATIENT RELATIONS COORDINATOR [address] [facility], [place] [address] Nurse Practitioner Nurse Practitioner 12/16/16 [place] [address] [place] [address] Gastroenterology 09/23/21 Mary Siddiqui MD [facility] [address] [address] Gastroenterology 09/23/21 Calixto Salcido MD [address] [place] [id number] Assigned Gastroenterology Provider 08/20/22 documented as of this encounter
--- OUTSIDE RECORDS SUMMARY | 2023-06-01 12:56 | XMS_ITS | Encounter Summary ---
Author Name Unknown Organization [facility] Address [address] [facility] [place] [address] Care Team Providers Care Correspondence Clerk Name Role Phone Citlaly Ley PA-C Unavailable [phone] Alee Tyson APRN SENIOR MICROSOFT CONSULTANT Unavaila ble Elroy Leigh Primary Care Provider + [phone] Sloane Claros DO Unavailable [phone] Mary Siddiqui MD Unavailable [phone] Loly Carranza MD, Calixto Unavailable [phone] Encounter Details Date Type Department Care Team (Late st Contact Info) Description 02/16/2023 Telephone [facility] Gastroenterology [facility] [address] [place] [address] Shazia Rodriguez PA-C [address] [place] [id number] Social History Tobacco Use Types Packs/Day Years [...] encounter Miscellaneous Notes * Telephone Encounter - Sofya Mojica Richar - 02/16/2023 11:32 AM CDT Please call us back to schedule a follow up appt at the GI department [phone] documented in this encounter Plan of Treatment Not on file documented as of this encounter Visit Diagnoses Not on filedocumented in this encounter Care Teams Correspondence Clerk Relationship Specialty Start Date End Date Elroy Leigh [address] [phone] PCP - General Family Practice 08/23/18 Citlaly Ley PA-C [facility] PHYSICIAN [facility] [address] [place], [place] [phone] Referring Physician 12/16/16 Alee Tyson APRN CNP [address] [facility] [address] Nurse Practitioner Nurse Practitioner 12/16/16 [place] [address] [place], [place] [address] Gastroenterology 09/23/21 Mary Siddiqui MD [address] [address] Gastroenterology 09/23/21 Calixto Salcido MD [address] [place] [id number] Assigned Gastroenterology Provider 08/20/22 documented as of this encounter
[2023-06-02] MEDS: PERFLUTREN LIPID MICROSPHERES 2 ML VIAL IV (09:42)
== END 2023-06-01 12:54 | disposition home or self-care (01) ==
LOC: RAD 12:53
PROVIDERS: PCP Family Medicine; Visit Provider Family Medicine
DX: I49.9 Cardiac arrhythmia, unspecified (principal); I51.7 Cardiomegaly; I50.9 Heart failure, unspecified; F15.20 Other stimulant dependence, uncomplicated
CPT/HCPCS: 93306; Q9957

== ENCOUNTER 2023-07-24 09:41 | Outpatient (CLI) | payer OTHER, SELFPAY | END 2023-07-24 09:42 | disposition home or self-care (01) | LOC: FRMREF 09:55 | PROVIDERS: PCP Family Medicine; Visit Provider Family Medicine | DX: E11.9 Type 2 diabetes mellitus without complications (principal); Z79.84 Long term (current) use of oral hypoglycemic drugs; Z79.85 Long-term (current) use of injectable non-insulin antidiabetic drugs | CPT/HCPCS: 80053; 83036 ==

== ENCOUNTER 2024-04-08 14:27 | Outpatient (CLI) | payer MEDICAID, SELFPAY | END 2024-04-08 14:28 | disposition home or self-care (01) | LOC: FRMREF 14:27 | PROVIDERS: PCP Family Medicine; Visit Provider Family Medicine | DX: E11.65 Type 2 diabetes mellitus with hyperglycemia (principal); E78.5 Hyperlipidemia, unspecified; Z12.5 Encounter for screening for malignant neoplasm of prostate | CPT/HCPCS: 80053; 80061; 82043; 82570; 82607; G0103 ==

== ENCOUNTER 2024-05-16 10:56 | Outpatient (CLI) | payer MEDICAID, SELFPAY | END 2024-05-16 10:57 | disposition home or self-care (01) | PROVIDERS: PCP Family Medicine; Visit Provider Family Medicine | DX: E78.1 Pure hyperglyceridemia (principal); I42.8 Other cardiomyopathies | CPT/HCPCS: 80048; 83880 ==

== ENCOUNTER 2024-08-20 09:54 | Outpatient (CLI) | payer MEDICAID, SELFPAY | END 2024-08-20 09:55 | disposition home or self-care (01) | PROVIDERS: PCP Family Medicine; Visit Provider Family Medicine | DX: E11.65 Type 2 diabetes mellitus with hyperglycemia (principal); F15.20 Other stimulant dependence, uncomplicated; I42.8 Other cardiomyopathies; I50.20 Unspecified systolic (congestive) heart failure; Z79.4 Long term (current) use of insulin; Z79.84 Long term (current) use of oral hypoglycemic drugs; Z13.21 Encounter for screening for nutritional disorder | CPT/HCPCS: 80053; 80162; 82607 ==